=== PATIENT | male | born 1985 | race Caucasian/White ===

== ENCOUNTER 2017-10-22 22:26 | Emergency (ER) | payer OTHER ==
[~2017-10-22] VITALS: Ht 175.3 cm; Wt 137.9 kg
[~2017-10-22 22:26] MED LIST: CYCL-319 PO; HYDR-3498 PO; IBUP800T25 PO
[2017-10-22 22:27] VITALS: Ht 175.3 cm; Wt 137.9 kg
[2017-10-23] VITALS: BP 136/85; PULSE 121; RESP 20
--- NOTE | 2017-10-23 00:12 | ERD ---
ER Documentation Chief Complaint Chief Complaint bodyaches, cough, chills for 10 days HPI This 32 year old male patines reports that fever started 2 days ago with body aches ROS All systems reviewed and are negative except as per history of present illness. Medications Home Meds Active Scripts Ibuprofen* (Motrin*) 800 Mg Tab, 800 MG PO Q6H Y for PAIN AND OR ELEVATED TEMP, #30 TAB Prov:JEANNE VINES PA-C 12/12/15 Cyclobenzaprine Hcl* (Cyclobenzaprine Hcl*) 10 Mg Tablet, 10 MG PO TID, #20 TAB Prov:JEANNE VINES PA-C 12/12/15 Hydrocodone Bit-Acetaminophen* (Sperry*) 5-325 Mg Tab, 1 TAB PO Q6 Y for PAIN, # 14 TAB Prov:MINI HUTNLEY MD 06/28/15 Ibuprofen* (Motrin*) 800 Mg Tab, 800 MG PO Q6, #20 TAB Prov:MINI HUNTLEY MD 06/28/15 Discontinued Scripts Oxycodone HCl/Acetaminophen (Percocet 5-325 mg Tablet) 1 Each Tablet, 1 EACH PO TID, #10 TAB Prov:SHAHEED SIMEON 10/23/17 Allergies Allergies: Coded Allergies: Penicillins (Verified Allergy, Unknown, rash, 02/26/15) PMhx/Soc History of Surgery: No Anesthesia Reaction: No Hx Neurological Disorder: No Hx Respiratory Disorders: No Hx Cardiac Disorders: No Hx Psychiatric Problems: No Hx Miscellaneous Medical Probl: No Hx Alcohol Use: No Hx Substance Use: No Hx Tobacco Use: No Physical Exam Vitals Vital Signs Date Time Temp Pulse Resp B/P Pulse Ox O2 Delivery O2 Flow Rate FiO2 10/23/17 00:00 102.4 121 20 136/85 95 Room Air 10/22/17 22:27 102.4 121 20 136/85 95 VSS Physical Exam Const: Obese, hydrated, well appearing in no acute distress Head: Atraumatic Eyes: Conjunctiva, injected, PERRLA, EOMI ENT: Bilateral tympanic membranes are erythremic, non bulging, auditory canals are clear, nasal mucosa is boggy, wet, rhinorrhea noted, pharynx thymic, tonsillectomy, uvula midline rises and falls with pronation no shift Neck: Full range of motion..~ No meningismus. Cardio: Regular rate and rhythm, no murmurs Abd: Soft, non tender, non distended. Skin: skin is hot to touch. No petechiae or rashes Neur: Awake and alert Psych: Normal Mood and Affect Results 24 hrs Current Medications Medications (Trade) Dose Ordered Sig/Lilly Route PRN Reason Start Time Stop Time Status Last Admin Dose Admin Ibuprofen (Motrin) 400 mg ONCE ONCE PO 10/23/17 00:30 10/23/17 00:31 DC 10/23/17 00:53 Acetaminophen 1000 mg 1,000 mg ONCE STAT PO 10/23/17 00:17 10/23/17 00:19 DC 10/23/17 00:53 Sodium Chloride (NS) 1,000 ml @ 1,000 mls/hr Q1H ONCE IV 10/23/17 00:30 10/23/17 01:29 DC 10/23/17 00:54 Ondansetron HCl (Zofran Inj) 4 mg ONCE STAT IV 10/23/17 00:17 10/23/17 00:19 DC 10/23/17 00:53 Procedures/MDM PROCEDURE: XR Chest. CLINICAL INDICATION: Fever. TECHNIQUE: Single frontal view of the chest. COMPARISON: 12/12/2015. FINDINGS: The cardiomediastinal silhouette is within normal limits. Pulmonary vascular markings are accentuated by hypoinflated lungs and patient body habitus. The lungs are clear. No signs of pleural fluid or pneumothorax are seen. The osseous structures and soft tissues are unremarkable. IMPRESSION: 1. Hypoinflated lungs and patient body habitus accentuate pulmonary vascular markings. 2. Otherwise, no evidence for active cardiopulmonary disease. RPTAT: [facility] Physician Dalila Date Time Electronically viewed and signed by Physician Dalila on 10/23/2017 01:1 This 32-year-old male patient presents to emergency department for evaluation of fever 2 days. Patient reports he has had cold-like symptoms for the past week and a half with a sudden spike in fever Monday. Patient reports since Monday he has had body aches, fevers as high as 102 at home, runny nose, chest congestion, and fatigue. Patient did not have his influenza vaccine this year. Denies any known sick contacts. Emergency room course includes history and physical exam, chest x-ray with radiologist documentation of Hypoinflated lungs and patient body habitus accentuate pulmonary vascular markings. Otherwise, no evidence for active cardiopulmonary disease. I have high suspicion for influenza A, a swab was obtained and sent to lab in came back positive for virus. Plan to start Tamiflu 75 mg 1 tab p.o. twice daily 5 days, told that this is not a cure for the virus there is no cure for viruses this will shorten the duration of the symptoms, increase fluids, increase rest, continue to check temperature, and treat with Tylenol or ibuprofen. Return to emergency department if not tolerating fluids, temperature not responding to treatment, Departure Diagnosis: Primary Impression: Influenza Condition: Good Patient Instructions: Influenza (Adult) Referrals: [facility] Comments Thank you for for coming to [facility] for your care today. Please ask your nurse or provider if you have questions about your care today and do not leave until all your questions have been answered. Please use any medications given as directed and follow-up with your doctor (or the doctor you were referred to) in the next 2-3 days. If you do not have a primary care doctor you may follow up at the [facility] (listed below). You may also use motrin and tylenol as needed for fever and/or pain unless instructed otherwise by your provider or nurse. Indications for more urgent follow-up have been discussed, but you may return to the Emergency Department at ANY time for any worrisome or worsening symptoms. If you have abdominal pain, please know that no test or exam you received is perfect and you should follow up within 8 hours for continued pain. If you had any imaging studies today, such as an X-Ray or CT Scan, these studies will be reviewed later by a radiologist. You will be called if there are important findings that were not identified today, so make sure the contact information you provided at registration is correct. If you received any narcotic pain control medicine today, such as Vicodin, Morphine or Dilaudid, your coordination and judgment may be affected for a number of hours. Please do not drive or operate heavy machinery, and you may want someone to assist you at home. If you were given a prescription for narcotic medication, be aware that it is very addictive- use sparingly and only if necessary. SHAHEED SIMEON Oct 23, 2017 00:12
[2017-10-23] MEDS ORDERED: ONDANSETRON 4 MG INJ IV STA (00:17)
[2017-10-23] MEDS ORDERED: ACETAMINOPHEN 500 MG TAB PO STA (00:17)
[2017-10-23] MEDS ORDERED: SOD CHLORIDE 0.9% 1,000 ML IV ONE (00:30)
[2017-10-23] MEDS ORDERED: IBUPROFEN 200 MG TAB PO ONE (00:30)
[2017-10-23] MEDS ORDERED: OXYC-279 PO (00:48)
--- NOTE | 2017-10-23 01:17 | RADRPT ---
PROCEDURE: XR Chest. CLINICAL INDICATION: Fever. TECHNIQUE: Single frontal view of the chest. COMPARISON: 12/12/2015. FINDINGS: The cardiomediastinal silhouette is within normal limits. Pulmonary vascular markings are accentuate d by hypoinflated lungs and patient body habitus. The lungs are clear. No signs of pleural fluid or pneumothorax are seen. The osseous structures and soft tissues are unremarkable. IMPRESSION: 1. Hypoinflated lungs and patient body habitus accentuate pulmonary vascular markings. 2. Otherwise, no evidence for active cardiopulmonary disease. RPTAT: [facility] Physician Dalila Date Time Electronically viewed and signed by Physician Dalila on 10/23/2017 01:16 RS/
[2017-10-23] MEDS ORDERED: OSLT75C PO (03:24)
[2017-10-23] MEDS ORDERED: IBUP-1542 PO (03:25)
[2017-10-23] MEDS ORDERED: BENZ100C70 PO (03:25)
[2017-10-23] MEDS ORDERED: ACET500C5 PO (03:25)
[2017-10-23] MEDS ORDERED: IBUPROFEN 600 MG TAB PO ONE (03:30)
[2017-10-23 03:41] VITALS: TEMP 100.6
== END 2017-10-23 03:45 | disposition home or self-care (01) ==
LOC: FTE 22:26
DX: J10.1 Influenza due to other identified influenza virus with other respiratory manifestations (principal)
CPT/HCPCS: 71010; 87400; 96374; J2405; J7030; Z7502; Z7610